=== PATIENT | male | born 1945 | race Caucasian/White ===

== ENCOUNTER 2023-09-16 21:56 | Emergency (ER) | payer OTHER ==
[2023-09-16 22:04] VITALS: BP 169/84; PULSE 86; RESP 16; TEMP 98.3; BMI 26.2
[2023-09-16 23:22] LABS: EPI CELLS 5 /uL (0-25.1); HYALINE CASTS 0 /uL (0-3.1); URINE APPEARANCE CLEAR; URINE BILIRUBIN NEGATIVE (NEGATIVE); URINE COLOR ORANGE; URINE GLUCOSE (UA) NEGATIVE (NEGATIVE); URINE KETONE NEGATIVE (NEGATIVE); URINE LEUK ESTERASE TRACE (NEGATIVE); URINE NITRITE NEGATIVE (NEGATIVE); URINE PROTEIN 4+ (NEGATIVE); URINE RBC 10 /uL (0-23.9); URINE UROBILINOGEN 0.2 mg/dL (0.2-1.0); URINE WBC 0 /uL (0-25.8)
== END 2023-09-16 23:23 | disposition home or self-care (01) ==
LOC: JER 21:56
PROC: 0T9B70Z Drainage of Bladder with Drainage Device, Via Natural or Artificial Opening (ICD-10-PCS; principal; 2023-09-16)
DX: R30.0 Dysuria (principal); R31.9 Hematuria, unspecified; N40.1 Benign prostatic hyperplasia with lower urinary tract symptoms; R33.8 Other retention of urine
CPT/HCPCS: 81003; 87086; 99283-25